=== PATIENT | female | born 1990 | race Caucasian/White ===

== ENCOUNTER 2022-09-28 23:27 | Emergency (ER) | payer BC, SELFPAY ==
[2022-09-28 23:34] VITALS: BP 157/98; PULSE 110; RESP 18; TEMP 36.1; O2SAT 99; BMI 42.1
--- NOTE | 2022-09-29 00:56 | ED.GENADULT ---
HPI - General Adult General Chief complaint: Back Injury/Pain Stated complaint: Back Pain Time Seen by Provider: 09/29/22 00:03 Source: patient Mode of arrival: ambulatory Limitations: no limitations History of Present Illness HPI narrative: 31-year-old female presents the emergency department with bilateral mid back pain that started approximately 2 hours prior to arrival. She was at a work constitution party, drinking couple of alcoholic beverages when it started. Sudden onset, spasm pain. Radiated around the anterior chest a little bit. She tried taking some ibuprofen which initially did not help. Unfortunately the emergency department was fairly busy. She had been here over an hour by the time I was able to get to see her. And at that time her spasm has resolved completely and she only has achy pain located at the lower angle of the right scapula which she rates as 2 to 3/10. No shortness of breath, no fever, no trauma or injury, no increased heavy lifting. She does carry her young son around and wonders if this contributes. Pain does not radiate down the legs, no numbness or tingling. No rash noted. No history of cardiac issues. No dysuria, no hematuria. No prior history of similar symptoms. No known history of back issues. Pain was initially constant and sharp, is now constant and achy, not exacerbated by movement. Past medical history notable for asthma, medications reviewed. I did notice her tachycardia and her heart rate was right around 100 during our entire encounter. I reviewed the records and see that in her last several outpatient visits including those prior to the EMR update, her heart rate does tend to always run around 100. This could be attributed to her asthma medications but I do see that it is consistently at that level. Allergies are to iodine and shellfish. She is a nonsmoker. ROS is notable for the musculoskeletal issues as above. Negative for other generalized, cardiac, respiratory, skin, GI, urinary or neurological changes. Related Data Home Medications Medication Instructions Recorded Confirmed albuterol sulfate 90 mcg/actuation 1 inh inhalation ONCE 01/30/22 02/25/22 aerosol inhaler budesonide-formoterol HFA 160 1 inh inhalation ONCE 01/30/22 02/25/22 mcg-4.5 mcg/actuation aerosol inhaler (Symbicort) fexofenadine 180 mg tablet 180 mg PO Q24H 01/30/22 02/25/22 (Phuong Allergy) fluticasone propionate 50 1 spray intranasal QDAY 01/30/22 02/25/22 mcg/actuation nasal spray,suspension (Flonase Allergy Relief) epinephrine 0.3 mg/0.3 mL 0.3 mg IM ONCE PRN 02/13/22 02/25/22 injection, auto-injector Allergies Allergy/AdvReac Type Severity Reaction Status Date / Time shellfish derived Allergy Intermediate Abdominal Verified 02/27/22 14:32 Pain iodine Allergy Unknown Unknown Verified 02/27/22 14:32 [facility] Medical History Patellar bursitis ?M70.50 - Other bursitis of knee, unspecified knee (ICD-10) Tendinopathy of patella ?M67.969 - Unspecified disorder of synovium and tendon, unspecified lower leg (ICD-10) Knee pain ?M25.569 - Pain in unspecified knee (ICD-10) Social History Smoking Status: Never smoker Do you use any of these nicotine containing products: None Second hand tobacco smoke exposure: No How often do you have a drink containing alcohol: monthly or less How often do you have six or more drinks on one occasion: Never AUDIT-C Alcohol total score: 1 Non-prescribed substance use: denies use Exam Const: Vital Signs, click to edit/add: Vital Signs - 24 hr 09/28/22 23:34 Temperature 97.0 F L Pulse Rate [Left P ulse Oximeter] 110 H Respiratory Rate 18 Blood Pressure [Ri ght Upper Arm] 157/98 H Pulse Oximetry 99 Oxygen Delivery Me thod Room Air Documenting provider has reviewed patient's vital signs: yes Common normals: no apparent distress General appearance: cooperative, comfortable and well kempt HENMT: Common normals: normocephalic Head and scalp: normocephalic Throat: posterior oropharynx normal Eye: General eye: normal appearance of both eyes Other: Normal visual gaze Neck & C-Spine: Common normals: full ROM and no lymphadenopathy Cervical spine: cervical ROM normal; no cervical spine tenderness Chest: Common normals: inspection of chest normal Resp: Common normals: normal respiratory effort, no use of accessory muscles and clear to auscultation bilaterally Effort & inspection: able to speak in complete sentences Auscultation: clear to auscultation bilaterally Cardio: Common normals: regular rate, regular rhythm, S1 normal heart sound, S2 normal heart sound and no murmurs Rate: regular rate Rhythm: regular rhythm Heart sounds: S1 normal and S2 normal : Common normals: no CVA tenderness Bladder/kidney exam: no CVA tenderness Back & Pelvis: Common normals: no CVA tenderness Other: Mild chronic kyphosis. Some mild bony tenderness all around T6 area. Significant paraspinal muscle tenderness which does reproduce her pain along the T8-T10 paraspinal muscle area. Right greater than left. Normal extension. Flexion does ?pull? on the muscle but does not reproduce the spasm today. No bruising or trauma Extremity: Common normals: normal to inspection and normal capillary refill Neuro: Motor exam: strength 5/5 throughout and no movement abnormalities noted Psych: Appearance: well kempt Attitude: engaged Activity/motor behavior: appropriate eye contact Insight: insight good Judgement: judgment good Skin: Common normals: no rashes or lesions noted General skin exam: no rashes or lesions noted Course Course Hospital Course: Bilateral back spasm with no trauma or injury, now resolved. Discussed that this does lessen the likelihood of severe pathologies such as aortic dissection, pulmonary embolism, pancreatitis or other intrathoracic or intra-abdominal pathology. I discussed the risks and benefits of additional imaging, she agrees that advanced imaging is not likely to be helpful no hours blood work. Discussed some chronic changes I can see in her posture that do make her higher risk of this happening again. Encouraged physical therapy. I will give her some home exercises to work on. Discussed heat, Tylenol. Prescriptions for Toradol and Flexeril given p.r.n.. Discussed use of these and alarm symptoms that would warrant ED presentation. She verbalizes understanding and agreement and is comfortable with plan. All questions answered. She will fill the medications from the vending machine in the lobby and take them once she gets home as she would like to be able to drive herself home and the Flexeril could cause impairment. I agree with this decision. Vital Signs Vital signs: Initial Vital Signs Temperature 97.0 F L 09/28/22 23:34 Temperature Source Temporal Artery Scan 09/28/22 23:34 Pulse Rate 110 H 09/28/22 23:34 Respiratory Rate 18 09/28/22 23:34 Blood Pressure 157/98 H 09/28/22 23:34 Blood Pressure Mean 117 H 09/28/22 23:34 Blood Pressure Position Supine 09/28/22 23:34 Pulse Oximetry 99 09/28/22 23:34 Oxygen Delivery Method Room Air 09/28/22 23:34 Vital Signs Temperature 97.0 F L 09/28/22 23:34 Pulse Rate 110 H 09/28/22 23:34 Respiratory Rate 18 09/28/22 23:34 Blood Pressure 157/98 H 09/28/22 23:34 Pulse Oximetry 99 09/28/22 23:34 Oxygen Delivery Method Room Air 09/28/22 23:34 Temperature 97.0 F L 09/28/22 23:34 Pulse Rate 110 H 09/28/22 23:34 Respiratory Rate 18 09/28/22 23:34 Blood Pressure 157/98 H 09/28/22 23:34 Pulse Oximetry 99 09/28/22 23:34 Oxygen Delivery Method Room Air 09/28/22 23:34 Discharge Plan Discharge Clinical Impression: Spasm of back muscles Patient Disposition: Home, Self-Care Condition: Improved Instructions: Muscle Spasm (ED), Core Strengthening Exercises (ED) Additional Instructions: IM glad that the back pain has improved so much. There are no signs of any dangerous reason for the pain today. As we discussed, I do not recommend a CT scan of your aorta or any further workup of the heart. Your tenderness seems confined to the muscles that serve the midback. You do have some chronic changes in your back it put you at higher risk for this happening again. I would recommend you discuss physical therapy referral with your primary care provider. The pain is likely to return sometime within the next few days. I have given you prescription for Toradol, a common anti-inflammatory pain medication. This does not cause drowsiness or impairment. I have also given you Flexeril, a muscle relaxant. This 1 will likely make you very sleepy. I would recommend that you start with a half a pill at bedtime if needed or if the spasm returns, okay to take the other half of the pill if symptoms are not improving after 1 hour. Remember that you can also take Tylenol and I would recommend that you actually take this preventative Adelaida for the next 3 days. I would recommend 1000 mg every 6-8 hours. He would then use the Toradol and Flexeril if the spasm returns. I will enclose a few exercises to start with. Heat is typically more helpful than ice. If you have persistent problems, I would recommend x-ray and or other workup and imaging. Prescriptions: No Action budesonide-formoterol [Symbicort] 160-4.5 mcg/actuation HFA aerosol inhaler 1 inh inhalation ONCE albuterol sulfate 90 mcg/actuation HFA aerosol inhaler 1 inh inhalation ONCE fluticasone propionate [Flonase Allergy Relief] 50 mcg/actuation spray,suspension 1 spray intranasal QDAY Rx Instructions: administer into each nostril fexofenadine [Phuong Allergy] 180 mg tablet 180 mg PO Q24H epinephrine 0.3 mg/0.3 mL auto-injector 0.3 mg IM ONCE PRN Follow Up/Referrals: John Jones MD [Primary Care Provider] - Stand Alone Forms: [employer] Info Instructions
== END 2022-09-29 01:05 | disposition home or self-care (01) ==
PROVIDERS: Emergency Provider Family Medicine; PCP Family Medicine
DX: M62.830 Muscle spasm of back (principal)
CPT/HCPCS: 99283

== ENCOUNTER 2022-10-16 09:28 | Outpatient (CLI) | payer BC, SELFPAY | END 2022-10-16 09:29 | disposition home or self-care (01) | LOC: NFLDREF 10-17 08:51 | PROVIDERS: PCP Family Medicine; Referring Provider Family Medicine; Visit Provider Physician Assistant Medical | DX: Z00.00 Encounter for general adult medical examination without abnormal findings (principal); Z13.6 Encounter for screening for cardiovascular disorders; Z13.21 Encounter for screening for nutritional disorder | CPT/HCPCS: 80053; 80061; 84443 ==

== ENCOUNTER 2023-01-23 07:05 | Outpatient (CLI) | payer BC, SELFPAY ==
--- NOTE | 2023-01-23 07:15 | CRLHL7_ITS ---
For Patients: As a result of the Century Cures Act, medical imaging exams and procedure reports are released immediately into your electronic medical record. You may view this report before your referring provider. If you have questions, please contact your health care provider. HISTORY: Right shoulder pain. Tightness. TECHNIQUE: Noncontrast MRI of the right shoulder. COMPARISON: No prior. FINDINGS: Rotator cuff: The distal supraspinatus, infraspinatus, subscapularis and teres minor tendons are intact. There is no rotator cuff tendon tear. No muscle atrophy. AC joint and coracoacromial arch: Mild AC joint arthrosis. Coracoclavicular ligament intact. Type 2 acromial morphology. No os acromiale. The acromiohumeral interval measures approximately 6 mm. There is soft tissue edema in the region of the anterior aspect of the subacromial-subdeltoid bursa and adjacent to the coracoacromial ligament suggesting inflammatory change. Coracohumeral interval is patent. Biceps-labral complex: Long head of biceps tendon is intact. There is no subluxation or dislocation of tendon from bicipital groove. Biceps anchor is intact. Superior labrum is intact. Labrum below the equator is intact. Glenohumeral joint: No effusion. The articular surfaces are maintained. No capsular edema or malalignment. Bones and soft tissues: No fracture or avascular necrosis. No abnormality within the suprascapular or spinoglenoid notches nor within the quadrilateral space. IMPRESSION: 1. Soft tissue edema in the region of the anterior aspect of the subacromial-subdeltoid bursa and adjacent to the coracoacromial ligament suggesting inflammatory change. 2. Mild AC joint arthrosis. 3. Rotator cuff tendons are intact. Dictated by Erlin Casanova MD @ 01/23/2023 12:36:30 PM (Electronically Signed)
== END 2023-01-23 07:06 | disposition home or self-care (01) ==
LOC: MRI 07:05
PROVIDERS: PCP Family Medicine; Visit Provider Physician Assistant Medical
DX: M25.511 Pain in right shoulder (principal); M19.011 Primary osteoarthritis, right shoulder
CPT/HCPCS: 73221

== ENCOUNTER 2023-09-02 04:00 | Emergency (ER) | payer BC, SELFPAY ==
--- NOTE | 2023-09-02 04:01 | ED_ITS ---
HPI - General Adult General Time Seen by Provider: 04:01 Date Seen: 09/02/23 Chief complaint: Abdominal Pain Stated complaint: Abdominal pain Time Seen by Provider: 09/02/23 04:00 Source: patient, RN notes reviewed and old records reviewed Mode of arrival: ambulatory Limitations: no limitations History of Present Illness HPI narrative: 32-year-old female who presents today with abdominal pain. Patient notes 2-3 days of upper abdominal pain that she describes as cramping, she attributes this to diaphragm. It is intermittent, woke her from sleep tonight. Does not seem to be worse with eating, no shortness of breath or chest pain. Minimal improvement with Tylenol ibuprofen. No associated nausea nor vomiting Related Data Home Medications ?Medication ?Instructions ?Recorded ?Confirmed fexofenadine 180 mg tablet 180 mg PO Q24H 01/30/22 05/27/23 (Phuong Allergy) fluticasone propionate 50 1 spray intranasal QDAY 01/30/22 05/27/23 mcg/actuation nasal spray,suspension (Flonase Allergy Relief) Multivitamin PO 10/09/22 05/27/23 melatonin 5 mg tablet 5 mg PO QHS 10/09/22 05/27/23 prednisone 20 mg tablet mg PO BID PRN 10/09/22 05/27/23 Previous Rx's ?Medication ?Instructions ?Recorded epinephrine 0.3 mg/0.3 mL 0.3 mg (0.3 mL) IM ONCE PRN 10/09/22 injection, auto-injector anaphylaxis #2 ea budesonide-formoterol HFA 160 1 inh inhalation BID #10.2 grams 02/16/23 mcg-4.5 mcg/actuation aerosol inhaler (Symbicort) albuterol sulfate 90 mcg/actuation 1 inh inhalation Q4-6H PRN 04/08/23 aerosol inhaler shortness of breath or wheezing #6.7 grams propranolol 20 mg tablet 20 mg PO BID PRN anxiety #60 tabs 05/01/23 fluoxetine 10 mg capsule 10 - 20 mg (1 - 2 x 10 mg) PO QDAY 05/27/23 #180 caps Allergies Allergy/AdvReac Type Severity Reaction Status Date / Time shellfish derived Allergy Intermediate Abdominal Verified 05/27/23 12:00 Pain iodine Allergy Unknown Unknown Verified 05/27/23 12:00 [facility] Medical History (Updated 09/02/23 @ 05:09 by Jordan Ahmadi MD) Cough ?R05.9 - Cough, unspecified (ICD-10) Right shoulder pain ?M25.511 - Pain in right shoulder (ICD-10) Patellar bursitis ?M70.50 - Other bursitis of knee, unspecified knee (ICD-10) Tendinopathy of patella ?M67.969 - Unspecified disorder of synovium and tendon, unspecified lower leg (ICD-10) Knee pain ?M25.569 - Pain in unspecified knee (ICD-10) Family History Other Atrial fibrillation Heart disease High blood pressure High cholesterol Social History Narrative: . 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 [employer] Rare alcohol use Denies recreational drug use Nontobacco user Smoking Status: Never smoker Do you use any of these nicotine containing products: None Second hand tobacco smoke exposure: No How often do you have a drink containing alcohol: monthly or less How often do you have six or more drinks on one occasion: Never AUDIT-C Alcohol total score: 1 Non-prescribed substance use: denies use Little interest or pleasure in doing things: not at all Feeling down, depressed, or hopeless: not at all service: No Exam Narrative: Exam Narrative: General: Well-developed and well-nourished, no acute distress Head: Atraumatic and normocephalic Eyes: Pupils are equal reactive, extraocular motions intact, conjunctiva clear ENT: External nose and ears are normal, posterior pharynx without erythema or exudate Neck: No midline cervical tenderness, full spontaneous range of motion the neck, trachea midline, no adenopathy Heart: Regular rate and rhythm no murmurs or thrills Lungs: Clear to auscultation bilaterally without wheezes or crackles Abdomen: Soft, nontender, nondistended with active bowel sounds Musculoskeletal: No tenderness, deformity, or edema Neurologic: Awake, alert, and oriented x3, no gross focal neurologic deficits, cranial nerves intact as tested Psych: Mood and affect are appropriate Skin: No rashes Const: Vital Signs, click to edit/add: Vital Signs - 24 hr 09/02/23 04:10 Temperature 97.4 F L Pulse Rate [Pulse Oximeter] 88 Respiratory Rate 18 Blood Pressure [Ri ght Upper Arm] 146/97 H Pulse Oximetry 99 Oxygen Delivery Me thod Room Air Course Course ED Course: He reviewed most recent primary care visit from to May 2023 which was follow- up for anxiety, patient was started on fluoxetine. Patient presents today with upper abdominal cramping pain for the past couple of days, does not seem to be related to eating drinking, no associated nausea vomiting. On exam here, no tenderness and patient says pain is improved. Labs ordered and plan for right upper quadrant ultrasound as an outpatient if labs reassuring Reevaluation(s) Time of Reevaluation #1: 04:53 Reevaluation #1: Labs ordered and independently interpreted by me with normal CBC. Time of Reevaluation #2: 05:01 Reevaluation #2: Labs ordered and independently interpreted by me with normal hepatic panel, normal lipase, normal basic panel. Patient recheck, she continues to be pain- free. We discussed possible symptomatic cholelithiasis and biliary colic the source of her symptoms. We discussed waiting for couple hours in getting an ultrasound done the morning verses follow-up with primary care and schedule ultrasounds outpatient. She would prefer to go home and schedule as an outpatient. We discussed follow-up precautions and she is stable for discharge Vital Signs Vital signs: Initial Vital Signs Temperature 97.4 F L 09/02/23 04:10 Temperature Source Temporal Artery Scan 09/02/23 04:10 Pulse Rate 88 09/02/23 04:10 Pulse Rhythm Regular 09/02/23 04:10 Respiratory Rate 18 09/02/23 04:10 Blood Pressure 146/97 H 09/02/23 04:10 Blood Pressure Mean 113 H 09/02/23 04:10 Blood Pressure Position Sitting 09/02/23 04:10 Pulse Oximetry 99 09/02/23 04:10 Oxygen Delivery Method Room Air 09/02/23 04:10 Vital Signs Temperature 97.4 F L 09/02/23 04:10 Pulse Rate 88 09/02/23 04:10 Respiratory Rate 18 09/02/23 04:10 Blood Pressure 146/97 H 09/02/23 04:10 Pulse Oximetry 99 09/02/23 04:10 Oxygen Delivery Method Room Air 09/02/23 04:10 Temperature 97.4 F L 09/02/23 04:10 Pulse Rate 88 09/02/23 04:10 Respiratory Rate 18 09/02/23 04:10 Blood Pressure 146/97 H 09/02/23 04:10 Pulse Oximetry 99 09/02/23 04:10 Oxygen Delivery Method Room Air 09/02/23 04:10 Medical Decision Making Lab Data Labs: Lab Results 09/02/23 Range/Units 04:25 WBC 8.49 (4.50-11.00) K/uL RBC 4.65 (4.00-5.20) m/uL Hgb 13.2 (12.0-16.0) gm/dL Hct 39.7 (33.0-51.0) % MCV 85 (80-100) fL MCH 28 (26-34) pg MCHC 33 (32-36) gm/dL RDW Coeff of Mike 12.9 (11.5-15.5) % Plt Count 218 (140-440) K/uL Neut % (Auto) 68.7 (42.0-72.0) % Lymph % (Auto) 22.4 (20-44) % Kaufman % (Auto) 5.3 (0.0-11.0) % Eos % (Auto) 2.8 (0.0-7.0) % Baso % (Auto) 0.7 (0.0-3.0) % Neut # (Auto) 5.83 (1.7-7.0) K/uL Lymph # (Auto) 1.90 (0.90-2.90) K/uL Kaufman # (Auto) 0.40 (0.00-0.90) K/UL Eos # (Auto) 0.24 (0.00-0.50) K/uL Baso # (Auto) 0.06 (0.00-0.30) K/uL Abs Immat Gran (auto) 0.01 (0.00-0.30) K/uL Imm/Tot Granulo (auto) 0.1 % Sodium 137 (135-149) mmol/L Potassium 4.4 (3.6-5.1) mmol/L Chloride 105 (96-114) mmol/L Carbon Dioxide 24 (20-32) mmol/L Anion Gap 8 (7-15) mEq/L BUN 14 (5-24) mg/dL Creatinine 0.6 (0.5-1.5) mg/dL Estimated Creat Clear 104.49 Estimated GFR 121 ml/min Glucose 100 (60-115) mg/dL Calcium 9.2 (8.4-10.6) mg/dL Total Bilirubin 0.5 (0.1-1.5) mg/dL Direct Bilirubin 0.3 (0.0-0.5) mg/dL AST 26 (12-35) U/L ALT 21 (4-35) U/L Alkaline Phosphatase 36 L (40-150) U/L Total Protein 7.3 (6.0-8.3) g/dL Albumin 4.4 (3.3-5.0) g/dL Lipase 49 (23-300) U/L Discharge Plan Discharge Clinical Impression: Acute upper abdominal pain, Symptomatic cholelithiasis Patient Disposition: Home, Self-Care Condition: Stable Instructions: Gallstones (ED) Additional Instructions: Tylenol or ibuprofen as needed for pain, follow-up with your primary care provider as scheduled to discuss further testing. Activity Level: Activity as Tolerated Discharge Diet: Low Fat/Low Cholesterol Prescriptions: No Action fluticasone propionate [Flonase Allergy Relief] 50 mcg/actuation spray,suspension 1 spray intranasal QDAY Rx Instructions: administer into each nostril fexofenadine [Phuong Allergy] 180 mg tablet 180 mg PO Q24H prednisone 20 mg tablet PO BID PRN Multivitamin PO melatonin 5 mg tablet 5 mg PO QHS epinephrine 0.3 mg/0.3 mL auto-injector 0.3 mg IM ONCE PRN (Reason: anaphylaxis) Qty: 2 0RF Rx Instructions: iodine/ shellfish allergy albuterol sulfate 90 mcg/actuation HFA aerosol inhaler 1 inh inhalation Q4-6H PRN (Reason: shortness of breath or wheezing) Qty: 6.7 3RF fluoxetine 10 mg capsule 10 - 20 mg PO QDAY Qty: 180 1RF Rx Instructions: 1-2 capsules daily for anxiousness budesonide-formoterol [Symbicort] 160-4.5 mcg/actuation HFA aerosol inhaler 1 inh inhalation BID Qty: 10.2 5RF Rx Instructions: 1 puff twice daily propranolol 20 mg tablet 20 mg PO BID PRN (Reason: anxiety ) Qty: 60 0RF Rx Instructions: 1 tablet twice daily as needed for palpitation sensation Follow Up/Referrals: John Jones MD [Staff Physician] - Stand Alone Forms: [employer] Info Instructions
[2023-09-02 04:10] VITALS: BP 146/97; PULSE 88; RESP 18; TEMP 36.3; O2SAT 99; BMI 41.2
[2023-09-02 04:37] LABS: Basophils Absolute Auto 0.06 K/uL (0.00-0.30); Basophils Percent Auto 0.7 % (0.0-3.0); Eosinophils Absolute Auto 0.24 K/uL (0.00-0.50); Eosinophils Percent Auto 2.8 % (0.0-7.0); Hematocrit 39.7 % (33.0-51.0); Hemoglobin* 13.2 gm/dL (12.0-16.0); Immature Granulocytes Abs Auto 0.01 K/uL (0.00-0.30); Immature Granulocytes Pct Auto 0.1 %; Lymphocytes Percent Auto 22.4 % (20-44); Mean Corpuscular HGB Conc 33 gm/dL (32-36); Mean Corpuscular Hemoglobin 28 pg (26-34); Mean Corpuscular Volume 85 fL (80-100); Monocytes Percent Auto 5.3 % (0.0-11.0); Neutrophils Absolute Auto 5.83 K/uL (1.7-7.0); Neutrophils Percent Auto 68.7 % (42.0-72.0); Platelet Count* 218 K/uL (140-440); RDW Coefficient of Variation % 12.9 % (11.5-15.5); Red Blood Count 4.65 m/uL (4.00-5.20); White Blood Count* 8.49 K/uL (4.50-11.00)
[2023-09-02 04:39] LABS: Slide Review Reflex No
[2023-09-02 04:49] LABS: Albumin* 4.4 g/dL (3.3-5.0)
[2023-09-02 04:50] LABS: Chloride* 105 mmol/L (96-114); Potassium* 4.4 mmol/L (3.6-5.1); Sodium* 137 mmol/L (135-149)
[2023-09-02 04:52] LABS: Anion Gap 8 mEq/L (7-15); Bilirubin Direct* 0.3 mg/dL (0.0-0.5); Bilirubin Total* 0.5 mg/dL (0.1-1.5); Carbon Dioxide* 24 mmol/L (20-32); Creatinine* 0.6 mg/dL (0.5-1.5); Est. Creatinine Clearance* 104.49; Estimated Glomerular Filt Rate 121 ml/min; Total Protein* 7.3 g/dL (6.0-8.3)
[2023-09-02 04:53] LABS: Alanine Aminotransferase* 21 U/L (4-35); Alkaline Phosphatase* 36 U/L (40-150); Aspartate Amino Transferase* 26 U/L (12-35); Blood Urea Nitrogen* 14 mg/dL (5-24); Calcium* 9.2 mg/dL (8.4-10.6); Glucose* 100 mg/dL (60-115); Lipase* 49 U/L (23-300)
== END 2023-09-02 05:18 | disposition home or self-care (01) ==
PROVIDERS: Emergency Provider Family Medicine; PCP Physician Assistant Medical
DX: R10.11 Right upper quadrant pain (principal); K80.20 Calculus of gallbladder without cholecystitis without obstruction
CPT/HCPCS: 36415; 80048; 80076; 83690; 85025; 99283; 99284

== ENCOUNTER 2023-09-09 09:43 | Outpatient (CLI) | payer BC, SELFPAY ==
--- NOTE | 2023-09-09 10:00 | CRLHL7_ITS ---
For Patients: As a result of the Century Cures Act, medical imaging exams and procedure reports are released immediately into your electronic medical record. You may view this report before your referring provider. If you have questions, please contact your health care provider. INDICATION: Upper abdominal pain. COMPARISON: None available. TECHNIQUE: Right upper quadrant grayscale and limited color Doppler ultrasound. FINDINGS: Liver: Homogeneous in echotexture. No suspicious focal lesion. No intrahepatic biliary ductal dilatation. Smooth contour. Normal hepatopedal portal venous blood flow. Gallbladder: Nondistended. 1.9 cm shadowing gallstone in the region of the gallbladder neck. Normal wall thickness. Negative sonographic Griffin sign. No pericholecystic free fluid. CBD: 6mm Pancreas: Normal where visualized. The pancreas is partially obscured and therefore incompletely evaluated. Right Kidney: Normal echotexture. No hydronephrosis. No convincing sonographic evidence of nephrolithiasis. Midline Vasculature: Unremarkable where visualized. Peritoneal Cavity: No significant ascites. Additional Findings: None. IMPRESSION: 1. Gallstone without sonographic evidence of acute cholecystitis. 2. Top-normal common bile duct caliber at 6 mm. Dictated by Otoniel Hernández MD @ 09/09/2023 11:40:28 AM (Electronically Signed)
== END 2023-09-09 09:44 | disposition home or self-care (01) ==
LOC: US 09:43
PROVIDERS: PCP Physician Assistant Medical; Visit Provider Emergency Medicine
DX: R10.10 Upper abdominal pain, unspecified (principal)
CPT/HCPCS: 76705

== ENCOUNTER 2023-09-25 16:36 | Emergency (ER) | payer BC, SELFPAY ==
[2023-09-25 16:44] VITALS: BP 123/82; PULSE 90; RESP 16; TEMP 37.3; O2SAT 99; BMI 42.1
--- NOTE | 2023-09-25 16:52 | ED_ITS ---
HPI - General Adult General Chief complaint: Abdominal Pain Stated complaint: abdominal pain Time Seen by Provider: 09/25/23 16:38 History of Present Illness HPI narrative: Has known gallstones and is scheduled for a choley per dr marquez on 10/01/23. developed pain that is worsening in her upper abd area ~1400. this is similar pain that she had a month ago with the gallbladder attack. las po was 1200- ate sandwich. 32-year-old woman presenting to the emergency department with return of cramping and sharp pain across the upper abdomen beginning about 2 hours prior to arrival. Was seen here in this department on 09/02/2023 with upper abdominal pain that is similar and findings of nearly 2 cm stone in the gallbladder neck. Had follow-up with general surgery and planned for cholecystectomy in 6 days. No fever. No diarrhea. Last ate about 5 hours ago. No nausea or vomiting. No shortness of breath. Has not tried anything for pain at this point. Is disappointed as had an evening planned to [facility] Ultrasound from prior ER visit as below Right upper quadrant grayscale and limited color Doppler ultrasound. FINDINGS: Liver: Homogeneous in echotexture. No suspicious focal lesion. No intrahepatic biliary ductal dilatation. Smooth contour. Normal hepatopedal portal venous blood flow. Gallbladder: Nondistended. 1.9 cm shadowing gallstone in the region of the gallbladder neck. Normal wall thickness. Negative sonographic Griffin sign. No pericholecystic free fluid. CBD: 6mm Pancreas: Normal where visualized. The pancreas is partially obscured and therefore incompletely evaluated. Right Kidney: Normal echotexture. No hydronephrosis. No convincing sonographic evidence of nephrolithiasis. Midline Vasculature: Unremarkable where visualized. Peritoneal Cavity: No significant ascites. Additional Findings: None. IMPRESSION: 1. Gallstone without sonographic evidence of acute cholecystitis. 2. Top-normal common bile duct caliber at 6 mm. Related Data Home Medications ?Medication ?Instructions ?Recorded ?Confirmed fexofenadine 180 mg tablet 180 mg PO Q24H 01/30/22 09/23/23 (Phuong Allergy) fluticasone propionate 50 1 spray intranasal QDAY 01/30/22 09/23/23 mcg/actuation nasal spray,suspension (Flonase Allergy Relief) melatonin 5 mg tablet 5 mg PO QHS 10/09/22 09/23/23 prednisone 20 mg tablet mg PO BID PRN 10/09/22 09/23/23 Previous Rx's ?Medication ?Instructions ?Recorded epinephrine 0.3 mg/0.3 mL 0.3 mg (0.3 mL) IM ONCE PRN 10/09/22 injection, auto-injector anaphylaxis #2 ea budesonide-formoterol HFA 160 1 inh inhalation BID #10.2 grams 02/16/23 mcg-4.5 mcg/actuation aerosol inhaler (Symbicort) albuterol sulfate 90 mcg/actuation 1 inh inhalation Q4-6H PRN 04/08/23 aerosol inhaler shortness of breath or wheezing #6.7 grams fluoxetine 10 mg capsule 10 - 20 mg (1 - 2 x 10 mg) PO QDAY 05/27/23 #180 caps omeprazole 20 mg capsule,delayed 20 mg PO .COMPLEX #60 caps 09/03/23 release Allergies Allergy/AdvReac Type Severity Reaction Status Date / Time shellfish derived Allergy Intermediate Abdominal Verified 09/23/23 08:49 Pain iodine Allergy Unknown Unknown Verified 09/23/23 08:49 Review of Systems Status of ROS: Reports: 6 or more systems reviewed and unremarkable except as noted in History and below [facility] Medical History (Updated 09/28/23 @ 06:24 by Roz Stanley RN) GERD (gastroesophageal reflux disease) ?K21.9 - Gastro-esophageal reflux disease without esophagitis (ICD-10) Hx of adenoiditis ?Z87.09 - Personal history of other diseases of the respiratory system (ICD- 10) Loose body of right knee ?M23.41 - Loose body in knee, right knee (ICD-10) Obesity ?E66.9 - Obesity, unspecified (ICD-10) Asthma ?J45.909 - Unspecified asthma, uncomplicated (ICD-10) Anxiety ?F41.9 - Anxiety disorder, unspecified (ICD-10) Surgical History Hx of adenoidectomy ?Z90.89 - Acquired absence of other organs (ICD-10) Hx of wisdom tooth extraction ?K08.409 - Partial loss of teeth, unspecified cause, unspecified class (ICD- 10) Family History Mother Sleep apnea Father High blood pressure Cardiac arrhythmia Hx of moth exterminator use of blood thinners Other Atrial fibrillation Heart disease High cholesterol Social History Narrative: . 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 Rare alcohol use Non-smoker Denies recreational drug use Non tobacco user Smoking Status: Never smoker Do you use any of these nicotine containing products: None Second hand tobacco smoke exposure: No How often do you have a drink containing alcohol: monthly or less How often do you have six or more drinks on one occasion: Never AUDIT-C Alcohol total score: 1 Non-prescribed substance use: denies use Little interest or pleasure in doing things: not at all Feeling down, depressed, or hopeless: not at all service: No Exam Narrative: Exam Narrative: Pleasant. Clearly uncomfortable in pain. Tearful. Breathing easily though. Lungs are clear. Heart in elevated rate but regular rhythm. Abdomen is soft overweight. Demonstrates pain across both hypogastric him and epigastrium. Tenderness begins in the epigastrium and into the right upper quadrant most intensely. Extremities are well perfused. She is without edema. Const: Vital Signs, click to edit/add: Vital Signs - 24 hr 09/25/23 16:44 Temperature 99.1 F Pulse Rate [Pulse Oximeter] 90 Respiratory Rate 16 Blood Pressure [Ri ght Upper Arm] 123/82 Pulse Oximetry 99 Oxygen Delivery Me thod Room Air Documenting provider has reviewed patient's vital signs: yes Course Vital Signs Vital signs: Initial Vital Signs Temperature 99.1 F 09/25/23 16:44 Temperature Source Temporal Artery Scan 09/25/23 16:44 Pulse Rate 90 09/25/23 16:44 Pulse Rhythm Regular 09/25/23 16:44 Respiratory Rate 16 09/25/23 16:44 Blood Pressure 123/82 09/25/23 16:44 Blood Pressure Mean 95 09/25/23 16:44 Blood Pressure Position Supine 09/25/23 16:44 Pulse Oximetry 99 09/25/23 16:44 Oxygen Delivery Method Room Air 09/25/23 16:44 Vital Signs Temperature 99.1 F 09/25/23 16:44 Pulse Rate 90 09/25/23 16:44 Respiratory Rate 16 09/25/23 16:44 Blood Pressure 123/82 09/25/23 16:44 Pulse Oximetry 99 09/25/23 16:44 Oxygen Delivery Method Room Air 09/25/23 16:44 Temperature 99.1 F 09/25/23 16:44 Pulse Rate 90 09/25/23 16:44 Respiratory Rate 16 09/25/23 16:44 Blood Pressure 123/82 09/25/23 16:44 Pulse Oximetry 99 09/25/23 16:44 Oxygen Delivery Method Room Air 09/25/23 16:44 Medications Administered Medications: Discontinued Medications Generic Name Dose Route Start Last Admin Trade Name Freq PRN Reason Stop Dose Admin Sodium Chloride 1,000 mls @ 1,000 mls/hr 09/25/23 17:00 09/25/23 18:15 0.9 % Sodium Chloride 1000 Ml IV 09/25/23 17:59 Infused .Q1H ONE Infusion Ketorolac Tromethamine 15 mg 09/25/23 17:00 09/25/23 17:15 Ketorolac 15 Mg/Ml Inj IVP 09/25/23 17:01 15 mg ONCE ONE Administration Morphine Sulfate 4 mg 09/25/23 17:00 09/25/23 17:20 Morphine 4 Mg/Ml Inj IVP 09/25/23 17:01 Not Given ONCE ONE Medical Decision Making MDM Narrative Medical decision making narrative: I would suspect biliary colic as likely cause of her pain. Will look for further evidence of cholecystitis or pancreatitis. Maybe rolled a stone. Perhaps ureteral stone? Pyelonephritis? IV was initiated. Ordered for morphine and ketorolac along with a L normal saline. Initially declined morphine. Discussed findings of ultrasound with catalog specialist. Stone in gallbladder neck is still present. Less evidence of cholecystitis. Radiology over-read as below Ultrasound abdomen limited. Sonographic images of the right upper quadrant were obtained using red-scale and color Doppler images. COMPARISON: 09/09/2023 FINDINGS: Liver: Normal in size and echotexture. No masses. No intrahepatic biliary dilatation. Gallbladder: Prominent gallstone is in the neck of the gallbladder. Gallbladder wall measures 3 mm. No pericholecystic fluid. Common bile duct: 6 mm. Pancreas: Unremarkable. Right kidney: Normal in size. Normal echotexture and cortex. No masses, stones, or hydronephrosis. Vasculature: Proximal abdominal aorta and IVC are normal. IMPRESSION: A relatively large stone is lodged in the gallbladder neck with borderline wall thickening. Acute cholecystitis is possible but not definite. Remainder of the exam is unremarkable. Pain is essentially controlled. She is comfortable to the point that feels could return home. Initially anticipating being admitted for surgery. I think with reassuring labs and control of pain she can follow-up outpatient. Discussed findings with general surgery on-call. They advanced the date of her surgery/cholecystectomy to this Thursday after the weekend. Medical Records Medical records reviewed: Yes I reviewed the patient's medical records Lab Data Lab results reviewed: Yes I reviewed the patient's lab results Labs: Lab Results 09/25/23 Range/Units 17:15 WBC 10.45 (4.50-11.00) K/uL RBC 5.12 (4.00-5.20) m/uL Hgb 14.5 (12.0-16.0) gm/dL Hct 43.6 (33.0-51.0) % MCV 85 (80-100) fL MCH 28 (26-34) pg MCHC 33 (32-36) gm/dL RDW Coeff of Mike 13.0 (11.5-15.5) % Plt Count 229 (140-440) K/uL Neut % (Auto) 70.6 (42.0-72.0) % Lymph % (Auto) 21.9 (20-44) % [place] % (Auto) 5.5 (0.0-11.0) % Eos % (Auto) 1.3 (0.0-7.0) % Baso % (Auto) 0.5 (0.0-3.0) % Neut # (Auto) 7.38 H (1.7-7.0) K/uL Lymph # (Auto) 2.29 (0.90-2.90) K/uL [place] # (Auto) 0.60 (0.00-0.90) K/UL Eos # (Auto) 0.14 (0.00-0.50) K/uL Baso # (Auto) 0.05 (0.00-0.30) K/uL Abs Immat Gran (auto) 0.02 (0.00-0.30) K/uL Imm/Tot Granulo (auto) 0.2 % Sodium 139 (135-149) mmol/L Potassium 3.8 (3.6-5.1) mmol/L Chloride 105 (96-114) mmol/L Carbon Dioxide 25 (20-32) mmol/L Anion Gap 9 (7-15) mEq/L BUN 14 (5-24) mg/dL Creatinine 0.6 (0.5-1.5) mg/dL Estimated Creat Clear 104.49 Estimated GFR 121 ml/min Glucose 96 (60-115) mg/dL Calcium 9.8 (8.4-10.6) mg/dL Total Bilirubin 0.4 (0.1-1.5) mg/dL Direct Bilirubin 0.3 (0.0-0.5) mg/dL AST 21 (12-35) U/L ALT 17 (4-35) U/L Alkaline Phosphatase 46 (40-150) U/L C-Reactive Protein < 0.5 L (0.5-1.0) mg/dL Total Protein 8.2 (6.0-8.3) g/dL Albumin 4.9 (3.3-5.0) g/dL Lipase 57 (23-300) U/L Discharge Plan Discharge Clinical Impression: Cholelithiasis, Biliary colic Patient Disposition: Home w/ Parent or Adult Condition: Improved Additional Instructions: I am happy you are feeling better. Per conversation with General surgery today, please return Thursday at 11:45 a.m. to check in for 1:00 p.m. surgery. See same preop instructions and location to present . NPO after midnight Should you have increase in pain, can take ibuprofen up to 800 mg per dose which could be combined also with Percocet as prescribed. Could also take acetaminophen I suppose. Can take up to 1000 mg of acetaminophen per dose. Keep in mind that he each tablet of Percocet contains 325 mg of acetaminophen. If pain not improved in 2 hours after taking medication or simply becomes unbearable, intractable vomiting, fever, please return to the emergency department. Zofran and Percocet from [facility] Prescriptions: No Action fluticasone propionate [Flonase Allergy Relief] 50 mcg/actuation spray,suspension 1 spray intranasal QDAY Rx Instructions: administer into each nostril fexofenadine [Phuong Allergy] 180 mg tablet 180 mg PO Q24H prednisone 20 mg tablet PO BID PRN melatonin 5 mg tablet 5 mg PO QHS epinephrine 0.3 mg/0.3 mL auto-injector 0.3 mg IM ONCE PRN (Reason: anaphylaxis) Qty: 2 0RF Rx Instructions: iodine/ shellfish allergy albuterol sulfate 90 mcg/actuation HFA aerosol inhaler 1 inh inhalation Q4-6H PRN (Reason: shortness of breath or wheezing) Qty: 6.7 3RF fluoxetine 10 mg capsule 10 - 20 mg PO QDAY Qty: 180 1RF Rx Instructions: 1-2 capsules daily for anxiousness omeprazole 20 mg capsule,delayed release(DR/EC) 20 mg PO .COMPLEX Qty: 60 0RF Rx Instructions: 20 mg orally; take one tablet bid x 2 weeks and then one tablet daily budesonide-formoterol [Symbicort] 160-4.5 mcg/actuation HFA aerosol inhaler 1 inh inhalation BID Qty: 10.2 5RF Rx Instructions: 1 puff twice daily Follow Up/Referrals: Molly Lerner PA-C [Primary Care Provider] - Stand Alone Forms: [facility] Info Instructions
--- NOTE | 2023-09-25 17:09 | CRLHL7_ITS ---
For Patients: As a result of the Century Cures Act, medical imaging exams and procedure reports are released immediately into your electronic medical record. You may view this report before your referring provider. If you have questions, please contact your health care provider. INDICATION: Abdominal pain. TECHNIQUE: Ultrasound abdomen limited. Sonographic images of the right upper quadrant were obtained using red-scale and color Doppler images. COMPARISON: 09/09/2023 FINDINGS: Liver: Normal in size and echotexture. No masses. No intrahepatic biliary dilatation. Gallbladder: Prominent gallstone is in the neck of the gallbladder. Gallbladder wall measures 3 mm. No pericholecystic fluid. Common bile duct: 6 mm. Pancreas: Unremarkable. Right kidney: Normal in size. Normal echotexture and cortex. No masses, stones, or hydronephrosis. Vasculature: Proximal abdominal aorta and IVC are normal. IMPRESSION: A relatively large stone is lodged in the gallbladder neck with borderline wall thickening. Acute cholecystitis is possible but not definite. Remainder of the exam is unremarkable. Dictated by Philipp Oro MD @ 09/25/2023 6:46:27 PM (Electronically Signed)
[2023-09-25] MEDS: 0.9 % SODIUM CHLORIDE 1000 ml 1,000 ML IV (17:15)
[2023-09-25] MEDS: KETOROLAC 15 MG/ML inj IVP (17:15)
[2023-09-25 17:26] LABS: Basophils Absolute Auto 0.05 K/uL (0.00-0.30); Basophils Percent Auto 0.5 % (0.0-3.0); Eosinophils Absolute Auto 0.14 K/uL (0.00-0.50); Eosinophils Percent Auto 1.3 % (0.0-7.0); Hematocrit 43.6 % (33.0-51.0); Hemoglobin* 14.5 gm/dL (12.0-16.0); Immature Granulocytes Abs Auto 0.02 K/uL (0.00-0.30); Immature Granulocytes Pct Auto 0.2 %; Lymphocytes Absolute Auto 2.29 K/uL (0.90-2.90); Lymphocytes Percent Auto 21.9 % (20-44); Mean Corpuscular HGB Conc 33 gm/dL (32-36); Mean Corpuscular Hemoglobin 28 pg (26-34); Mean Corpuscular Volume 85 fL (80-100); Monocytes Percent Auto 5.5 % (0.0-11.0); Neutrophils Absolute Auto 7.38 K/uL (1.7-7.0); Neutrophils Percent Auto 70.6 % (42.0-72.0); Platelet Count* 229 K/uL (140-440); Red Blood Count 5.12 m/uL (4.00-5.20); White Blood Count* 10.45 K/uL (4.50-11.00)
[2023-09-25 17:31] LABS: Slide Review Reflex No
[2023-09-25 17:39] LABS: Albumin* 4.9 g/dL (3.3-5.0); Chloride* 105 mmol/L (96-114)
[2023-09-25 17:40] LABS: Potassium* 3.8 mmol/L (3.6-5.1); Sodium* 139 mmol/L (135-149)
[2023-09-25 17:42] LABS: Alkaline Phosphatase* 46 U/L (40-150); Anion Gap 9 mEq/L (7-15); Aspartate Amino Transferase* 21 U/L (12-35); Bilirubin Direct* 0.3 mg/dL (0.0-0.5); Bilirubin Total* 0.4 mg/dL (0.1-1.5); Blood Urea Nitrogen* 14 mg/dL (5-24); Carbon Dioxide* 25 mmol/L (20-32); Creatinine* 0.6 mg/dL (0.5-1.5); Est. Creatinine Clearance* 104.49; Estimated Glomerular Filt Rate 121 ml/min; Total Protein* 8.2 g/dL (6.0-8.3)
[2023-09-25 17:43] LABS: Alanine Aminotransferase* 17 U/L (4-35); Calcium* 9.8 mg/dL (8.4-10.6); Glucose* 96 mg/dL (60-115); Lipase* 57 U/L (23-300)
[2023-09-25 17:47] LABS: C Reactive Protein* < 0.5 mg/dL (0.5-1.0)
== END 2023-09-25 19:32 | disposition home or self-care (01) ==
PROVIDERS: Emergency Provider Family Medicine; PCP Physician Assistant Medical
DX: K80.20 Calculus of gallbladder without cholecystitis without obstruction (principal); K80.50 Calculus of bile duct without cholangitis or cholecystitis without obstruction
CPT/HCPCS: 36415; 76705; 80048; 80076; 83690; 85025; 86140; 96361; 96374; 96375; 99284; J1885; J7030

== ENCOUNTER 2023-09-28 11:40 | Day surgery (SDC) | payer BC, SELFPAY ==
[2023-09-28] VITALS (21 sets, daily range): BP systolic 113–150; BP diastolic 64–96; PULSE 67–93; RESP 14–20; TEMP 36.1–36.9; O2SAT 93–100; BMI 42.3
[2023-09-28 12:04] LABS: Ur HCG Qualitative* Negative (Negative)
[2023-09-28] MEDS: LACTATED RINGERS 1000 ML 1,000 ML 100 ML IV ×2 (12:21→13:47)
[2023-09-28] MEDS: SODIUM CHLORIDE 0.9 % (FLUSH) 10 ML SYRINGE IVF (12:21)
--- NOTE | 2023-09-28 13:05 | W.ANESCHARGE ---
Anesthesia Charges Start Date/Time Anesthesia Start Date: 09/28/23 Anesthesia Start Time: 13:18 Stop Date/Time Anesthesia Stop Date: 09/28/23 Anesthesia Stop Time: 14:55
[2023-09-28] MEDS: CEFAZOLIN 2 GM INJ IVP (13:25)
[2023-09-28] MEDS: BUPIVACAINE 0.25% 30 ML INJECTION (14:10)
--- NOTE | 2023-09-28 14:46 | SUR.OPER ---
PREOP SKIN-PATIENT HAS REDDNESS & RASH ALONG CREASES ON LOWER ABDOMEN.
--- NOTE | 2023-09-28 14:59 | W.ANESCHARGE ---
Anesthesia Charges Start Date/Time Anesthesia Start Date: 09/28/23 Anesthesia Start Time: 13:18 Stop Date/Time Anesthesia Stop Date: 09/28/23 Anesthesia Stop Time: 14:55
[2023-09-28] MEDS: ONDANSETRON 2 MG/ML inj 4 MG IVP (15:13)
--- NOTE | 2023-09-28 15:14 | PM.GSPRC ---
Operative Note Date of procedure: 09/28/23 Pre-op diagnosis: Biliary colic Post-op diagnosis: Same Type of Procedure: Laparoscopic cholecystectomy Indications: The patient is a 32-year-old female who developed intermittent epigastric pain which woke her from sleep. She was found to have gallstones. Laboratory values were within normal limits. Cholecystectomy was discussed and plans were made to proceed this week. She presented to the emergency department at the end of last week with ongoing symptoms. Again her labs within normal limits so she was discharged home and her surgery was moved up to today. Procedure Description: After discussing the risks and benefits of the procedure, the patient signed informed consent.? The operative site was marked and the patient was brought to the operating room and placed on the operating table in supine position.? Care was taken to pad the patient's pressure points.?? The patient was then intubated by anesthesia.?? The operative site was then prepped and draped in the usual sterile fashion.? A time-out was then performed. Entrance to the abdomen was gained via a 5 mm Visiport in the left upper quadrant. The abdomen was insufflated and briefly surveyed for signs of injury. There was none. A 10 mm umbilical port was placed as well as 2 working ports along the right costal margin, all under direct vision. The patient was then placed in reverse Trendelenburg position with the right side up. The gallbladder fundus was grasped and retracted cephalad. The infundibulum was grasped. A combination of hook cautery and blunt dissection was used to carefully dissect out the cystic duct and artery until they could clearly be seen entering the gallbladder without any intervening structures. The gallbladder was dissected off the cystic plate to achieve the critical view. The gallbladder was not particularly edematous. There was a large stone in the fundus of the gallbladder. There did not appear to be any stones impacting the gallbladder neck. Once this was achieved the cystic duct and artery were each clipped with 2 clips proximally and 1 clip distally and transected with the scissors. The gallbladder was then taken off of the liver bed and removed from the abdomen using an Endo-Catch bag. The gallbladder bed was surveyed for hemostasis which appeared adequate, though, the patient bled easily from small vessels along the edge of the gallbladder during dissection and for this reason Surgicel was placed in the gallbladder bed. A small amount of bile which had spilled was suctioned from the abdomen. The umbilical port fascia was closed with 0 Vicryl using a Kenneth-Miguel A device. The remaining ports were then removed and the abdomen desufflated. The skin was closed with absorbable subcuticular suture. Local anesthetic was injected around the port sites. Instrument sponge and needle counts were correct at the end of the case. The patient was then woken and transferred to the PACU in stable condition. ? The patient tolerated the procedure well. Findings: Gallstones noted within the gallbladder. No significant cholecystitis noted. Anesthesia: GETA Surgeon: Marifer Kay MD Estimated blood loss (mL): 25 Specimen: Gallbladder Condition: stable Disposition: PACU
[2023-09-28] MEDS: HYDROmorphone 0.5 mg/0.5 ml inj IVP (15:27)
[2023-09-28] MEDS: fentaNYL 100 MCG/2 ML inj 50 MCG IVP (15:36)
[2023-09-28] MEDS: PROCHLORPERAZINE 5 MG/ML VIAL IVP (17:39)
[2023-09-28] MEDS: HYDROCODONE-ACETAMIN 5-325 MG 1 TAB PO (18:05)
[2023-09-28] MEDS: LACTATED RINGERS 1000 ML 1,000 ML 75 ML IV (18:05)
--- NOTE | 2023-09-28 20:24 | PC.NURSE ---
Discharge Summary: Patient from PACU at 1600. C/o persistent nausea. Updated MD and one time order for Compazine. Patient able to tolerate crackers, applesauce and fluids. No emesis. Up to bathroom with SBA and voided x1. C/o pain up to 6/10 and PRN Ennis given x1. Steri-strips C/D/I. Patient discharged home at 1943 with all personal belongings accompanied by significant other. Discharge instructions including diagnosis, medications and follow up appointment discussed with patient and voiced understanding.
== END 2023-09-28 19:43 | disposition home or self-care (01) ==
LOC: OR 15:09 → MEDSURG 16:24
PROVIDERS: Anesthesiology; PCP Physician Assistant Medical; Visit Provider Surgery
PROC: 0FT44ZZ Resection of Gallbladder, Percutaneous Endoscopic Approach (ICD-10-PCS; CPT 47562; principal; 2023-09-28 13:00)
DX: K80.10 Calculus of gallbladder with chronic cholecystitis without obstruction (principal); R10.13 Epigastric pain
CPT/HCPCS: 47562; 00790; 81025; 88304; A9270; J0330; J0665; J0690; J0780; J1100; J1170; J2250; J2405; J2704; J2710; J3010; J7120